=== PATIENT | female | born 1945 | race Caucasian/White ===

== ENCOUNTER → 2016-11-18 | Outpatient (CLI) | payer MEDICARE ==
[2016-11-18 13:56] LABS: ANION GAP 9 MEQ/L (8-16); BLOOD UREA NITROGEN 16 MG/DL (7-18); CALCIUM LEVEL 8.7 MG/DL (8.8-10.2); CARBON DIOXIDE LEVEL 27 MEQ/L (21-32); CHLORIDE LEVEL 103 MEQ/L (98-107); CREATININE FOR GFR 0.81 MG/DL (0.55-1.02); GLOMERULAR FILTRATION RATE > 60.0 (>39); GLUCOSE, FASTING 110 MG/DL (83-110); POTASSIUM SERUM 3.7 MEQ/L (3.5-5.1); SODIUM LEVEL 139 MEQ/L (136-145)
--- NOTE | 2016-11-19 07:39 | CR ---
DATE OF CONSULTATION: 11/18/2016 REFERRING PHYSICIAN: Dr. Swain. Dear Dr. Swain: Thank you for asking me to see Ms. Sheila Osman in consultation prior to her bilateral eye surgery 12/04/2016. Ms. Osman is, as you know, a 71-year-old female with past medical history is osteoarthritis (OA), degenerative joint disease (DJD), hypertension, hyperlipidemia who presents for preoperative optimization. The patient reports onset of upper respiratory infection (URI) symptoms the last 4-5 days after returning from a long flight from [place]. Her has been ill as well. She has been sleeping the last 2-3 days from exhaustion from the long flights, time change, and her URI symptoms. She complains of congestion, ear crackling, but has had no significant fevers. She is using NyQuil, resting and hydrating. She denies any chest pain, palpitations, syncope or presyncope. She does wear bilevel positive airway pressure (BiPAP) and is compliant with this, though difficult with her congestion. Patient has advanced OA, DJD. She has had surgery on the left knee but is still limited. Her right knee has been improved and she is holding off on further intervention. The patient has rheumatoid arthritis. She is on the sulfasalazine. She follows with rheumatology every four months. She strongly feels she needs to medication right up until surgery. The patient has seasonal allergies. She has been off immunotherapy. Symptoms have been good. The patient has hiatal hernia, gastroesophageal reflux disease (GERD). She has been controlled off omeprazole. Patient is menopausal. She is on the Vivelle and feels that she needs it. The patient has insomnia particularly after she has traveled to [place]. She does use Ambien sparingly, but with being ill, she is exhausted and sleeping well. Patient concerned about recurrent cold sores including one on her left lower lip. PAST MEDICAL HISTORY: 1. Hypothyroid. 2. Thyroid adenoma. 3. Fibrocystic breast disease. 4. 2, para 2/ section. 5. Depression. 6. Panic attacks. 7. Basal cell carcinoma on her face times three. 8. Uterine fibroids, status post total abdominal hysterectomy/bilateral salpingo-oophorectomy (TASNEEM-BSO). 9. Palpitations, negative workup. 10. Hyperglycemia. 11. Hyperlipidemia. 12. Hypertension. 14. Rheumatoid arthritis/ 15. OA DJD status post multiple knee surgeries and including left total knee arthroplasty (TKA) 05/28/2013. 16. Allergic rhinitis, status post immunotherapy. 17. Hematuria, negative evaluation 2010. PATIENT'S MEDICATIONS: She is not taking the majority of her supplements at this time. She does have Ambien and uses this sparingly for sleep. She is taking krill oil and flaxseed, as well as reduloxin, a celery supplement for inflammation. She takes her Vivelle regularly. She is on sulfasalazine 500 mg twice a day, and her vitamin D3 2000 international units daily. DRUG ALLERGIES: REGLAN which causes agitation. FAMILY HISTORY: Father had rheumatoid arthritis, lupus. Mom had hypertension, arthritis, polyps. She at 58 of pneumonia. A brother has osteoarthritis, reflux. Grandparents had cardiac disease, thyroid disease. The patient is not smoking, alcohol 3-4 glasses a week. PHYSICAL EXAMINATION: She is an overweight female in no acute distress. VITAL SIGNS: Weight 186 with a body mass index (BMI) of 35.4, Oxygen saturation is 93%, blood pressure 148/86, recheck 134/84, heart rate is 81, temperature is 98.4. HEENT: Head is normocephalic. Neck is supple. Pupils equal, reactive to light. External ocular movements are intact. Conjunctivae are not injected. Sclerae anicteric. Vision is grossly normal. Ears: Tympanic membranes slightly dull with a scant amount of cerumen. Tongue is midline. Posterior pharynx without inflammation. Left lower lip, the patient has small ulcer, most likely a cold sore. NECK: Supple. No thyromegaly, jugular venous distention (JVD) or carotid bruits. RESPIRATORY: Clear to auscultation, resonant to percussion. BREASTS: Exam deferred. CARDIOVASCULAR: Regular rate and rhythm. No murmur, click, rub, gallop. ABDOMEN: Soft, nontender. Normoactive bowel sounds. EXTREMITIES: No cyanosis, clubbing or edema. Left knee well-healed scar. She does have some arthritic changes of her fingers. NEUROLOGIC: Alert and oriented. Cranial nerves II-XII are intact. LABORATORY DATA From 11/18/2016: Normal hemoglobin, normal platelet function. Med profile: The calcium is 8.7, otherwise essentially normal. EKG today shows normal sinus rhythm rate of 81, axis of 18 degrees, normal DC, QRS, QTC interval. Incomplete right bundle branch block, nonspecific ST-T wave changes, unchanged from previous EKG. IMPRESSION: Ms. Sheila Osman is a 71-year-old female with multiple diet-controlled cardiovascular risk factors including hypertension, hyperglycemia, hyperlipidemia, who also has rheumatoid arthritis, has no signs or symptoms indicative of cardiovascular ischemia and is felt to be at low risk for cardiovascular complications from the proposed surgical intervention which can be further minimized by the followin. Hypertension, diet-controlled, adequate control on recheck. 2. Hyperglycemia, dietary advice given. 3. Rheumatoid arthritis resistant to holding her sulfasalazine. I have approved her taking this up until surgery. 4. Hyperlipidemia. I have asked her to hold her fish oil, flaxseed, red yeast rice until after surgery. 5. Menopausal. She will continue her Vivelle perioperatively. 6. Upper respiratory infection (URI) conservative advice including to push fluids, use saline rinses, plenty of rest. Call if not improving. 7. Obstructive sleep apnea (KEVON). I have encouraged compliance and to bring her BiPAP with her to surgery. 8. Gastroesophageal reflux disease (GERD) controlled without intervention. 9. Insomnia, continues sparing use of Ambien. 10. Recurrent cold sores. Expect present is related to her URI and recent trip back from [place]. I have approved the topical use of acyclovir and this is prescribed. Thank you very much for this consultation. Please call with questions or concerns.
== END ==
LOC: M LAB 13:04
PROVIDERS: ATTEND Ophthalmology
DX: H02.423 Myogenic ptosis of bilateral eyelids (principal); G47.30 Sleep apnea, unspecified

== ENCOUNTER → 2017-08-19 | Outpatient (REF) | payer MEDICARE ==
[2017-08-20 11:15] LABS: HEPATITIS C VIRUS ABY INDEX < 0.0 INDEX (<0.8)
== END ==
LOC: M LAB REF 14:00
DX: Z01.89 Encounter for other specified special examinations (principal)
CPT/HCPCS: 86803

== ENCOUNTER → 2017-11-20 | Outpatient (REF) | payer MEDICARE ==
[2017-11-20 12:41] LABS: C REACTIVE PROTEIN QUANTITATIV < 0.30 MG/DL (0.00-0.30)
[2017-11-22 00:07] LABS: CYCLIC CITRULLINATED PEPTIDE < 1 units (0-19)
== END ==
LOC: M LAB REF 11:49
DX: M06.9 Rheumatoid arthritis, unspecified (principal)
CPT/HCPCS: 86140

== ENCOUNTER 2018-07-24 09:35 | Emergency (ER) | payer MEDICARE ==
[~2018-07-24] VITALS: Ht 162.6 cm; Wt 84.1 kg
[2018-07-24 09:36] VITALS: BP 142/78
[2018-07-24] MEDS ORDERED: HYDR-3713 (09:41)
[2018-07-24] MEDS ORDERED: ESTR1DIS3 (09:41)
[2018-07-24] MEDS ORDERED: SULF50TA (09:41)
[2018-07-24] MEDS ORDERED: ZOLP5TAB (09:41)
--- NOTE | 2018-07-24 10:41 | REP ---
RIGHT HUMERUS, TWO VIEWS: HISTORY: Injury. There is no acute fracture or dislocation. There is mild narrowing of the should joint spaces. IMPRESSION: There is no acute fracture or dislocation. Electronically Signed by Miko Cristobal MD 07/24/2018 10:47 A
--- NOTE | 2018-07-24 10:46 | REP ---
Right forearm: Two views. History: Right arm injury. Findings: AP and lateral views of the right forearm demonstrate lateral epicondylar spurring. No fracture or subluxation is seen. There is some osteoarthritis at the wrist. Impression: Degenerative changes. No traumatic abnormality noted. Electronically Signed by Dharmesh Vuong MD 07/24/2018 10:36 A
[2018-07-24] MEDS ORDERED: NORC1TAB4 PO (11:03)
[2018-07-24] MEDS ORDERED: NORCOTAB PO (11:05)
== END 2018-07-24 11:11 | disposition home or self-care (01) ==
LOC: M ED 09:35
DX: S46.911A Strain of unspecified muscle, fascia and tendon at shoulder and upper arm level, right arm, initial encounter (principal); S60.211A Contusion of right wrist, initial encounter; W00.0XXA Fall on same level due to ice and snow, initial encounter; Y92.018 Other place in single-family (private) house as the place of occurrence of the external cause; Z88.8 Allergy status to other drugs, medicaments and biological substances

== ENCOUNTER 2019-07-12 06:37 | Day surgery (SDC) | payer MEDICARE ==
[~2019-07-12] VITALS: Ht 162.6 cm; Wt 85.3 kg
[~2019-07-12 06:37] MED LIST: ESTR1DIS3; HYDR-3713; HYDR-3715 PO; NORC1TAB7 PO; NS 1,000 ML IV ONE; SULF50TA PO; ZOLP5TAB
[2019-07-12] MEDS ORDERED: LIDOCAINE 2% INJ 100 MG/5 ML SDV (FOR ANES.) As Ordered ONE (07:45)
[2019-07-12] MEDS ORDERED: PROPOFOL 200 MG/20 ML VIAL As Ordered ONE (07:46)
--- NOTE | 2019-07-12 07:57 | ROOR ---
Patient Name: Sheila Osman Procedure Date: 07/12/2019 7:36 AM Date of : 1945 Age: 73 Room: [facility] Gender: Female Note Status: Finalized Procedure: Total Colonoscopy to Cecum + Bx. To r/o Microscopic Colitis Indications: Change in bowel habits Providers: Roger Tyson MD Referring MD: Micaela ZAPATA MD Requesting Provider: Medicines: Monitored Anesthesia Care Complications: No immediate complications. Procedure: Pre-Anesthesia Assessment: - The heart rate, respiratory rate, oxygen saturations, blood pressure, adequacy of pulmonary ventilation, and response to care were monitored throughout the procedure. The Colonoscope was introduced through the anus and advanced to the cecum, identified by appendiceal orifice and ileocecal valve. The colonoscopy was performed without difficulty. The patient tolerated the procedure well. The quality of the bowel preparation was excellent. Findings: The perianal and digital rectal examinations were normal. Non-bleeding internal hemorrhoids were found during retroflexion. The hemorrhoids were small and Grade I (internal hemorrhoids that do not prolapse). No other significant abnormalities were identified in a careful examination of the remainder of the colon. The exam was otherwise without abnormality on direct and retroflexion views. Biopsies for histology were taken with a cold forceps from the ascending colon, transverse colon, descending colon and rectosigmoid colon for evaluation of microscopic colitis. The exam was otherwise without abnormality. Impression: - Non-bleeding internal hemorrhoids. - The examination was otherwise normal on direct and retroflexion views. - The examination was otherwise normal. - Biopsies were taken with a cold forceps from the ascending colon, transverse colon, descending colon and rectosigmoid colon for evaluation of microscopic colitis. - The exam was otherwise normal to the cecum. Recommendation: - Patient has a contact number available for emergencies. The signs and symptoms of potential delayed complications were discussed with the patient. Return to normal activities tomorrow. Written discharge instructions were provided to the patient. - High fiber diet. - Discharge patient to home. - Continue present medications. - Await pathology results. - Telephone GI clinic for pathology results in 1 week. - Repeat colonoscopy for symptoms only. - Return to referring physician. - The findings and recommendations were discussed with the patient's family. Roger Tyson MD Roger Tyson MD 07/12/2019 7:57:16 AM Electronically signed by Roger Tyson MD Number of Addenda: 0 Note Initiated On: 07/12/2019 7:36 AM Estimated Blood Loss: Estimated blood loss: none.
[2019-07-12 08:10] VITALS: BP 174/75
== END 2019-07-12 08:40 | disposition home or self-care (01) ==
LOC: M OPP 06:37
PROVIDERS: ATTEND Internal Medicine Gastroenterology
DX: K64.0 First degree hemorrhoids (principal); R19.4 Change in bowel habit; Z79.899 Other long term (current) drug therapy; Z88.8 Allergy status to other drugs, medicaments and biological substances

== ENCOUNTER → 2021-06-08 | Outpatient (REF) | payer MEDICARE ==
[~2021-06-08] MED LIST changes: -NS 1,000 ML IV ONE; +SULF500T41 PO; -SULF50TA PO
[2021-06-08 14:12] LABS: BACTERIA, URINE AUTO NEGATIVE (NEGATIVE); MUCUS, URINE SMALL (NEGATIVE); RBC, URINE AUTO 0 /HPF (0-3); SQUAMOUS EPITHELIAL CELL UR AU 1 /HPF (0-6); WBC, URINE AUTO 0 /HPF (0-3)
== END ==
LOC: M LAB REF 13:39
PROVIDERS: ATTEND Internal Medicine
DX: R31.9 Hematuria, unspecified (principal)

== ENCOUNTER → 2022-09-16 | Outpatient (CLI) | payer MEDICARE | LOC: M SOG 07:52 | PROVIDERS: ATTEND Orthopaedic Surgery | DX: M54.50 Low back pain, unspecified (principal); M25.561 Pain in right knee; Z96.651 Presence of right artificial knee joint; M47.816 Spondylosis without myelopathy or radiculopathy, lumbar region; M47.817 Spondylosis without myelopathy or radiculopathy, lumbosacral region ==

== ENCOUNTER 2022-10-17 12:26 | Emergency (ER) | payer MEDICARE ==
[~2022-10-17] VITALS: Ht 162.6 cm; Wt 85.9 kg
[2022-10-17] MEDS ORDERED: ACETAMINOPHEN 500 MG TAB PO ONE (14:40)
[2022-10-17 16:16] VITALS: BP 184/92
[2022-10-17] MEDS ORDERED: ACETAMINOPH W/CODEINE #3 TAB UD PO ONE (16:30)
[2022-10-17] MEDS ORDERED: ACET-716 PO (16:37)
== END 2022-10-17 16:48 | disposition home or self-care (01) ==
LOC: M ED 12:26
DX: S70.01XA Contusion of right hip, initial encounter (principal); S52.501A Unspecified fracture of the lower end of right radius, initial encounter for closed fracture; S62.001A Unspecified fracture of navicular [scaphoid] bone of right wrist, initial encounter for closed fracture; W19.XXXA Unspecified fall, initial encounter; Y92.89 Other specified places as the place of occurrence of the external cause; Y93.89 Activity, other specified; E78.5 Hyperlipidemia, unspecified; Z79.899 Other long term (current) drug therapy; Z88.8 Allergy status to other drugs, medicaments and biological substances

== ENCOUNTER → 2022-10-21 | Outpatient (CLI) | payer MEDICARE ==
[~2022-10-21] MED LIST changes: +ACET-716 PO
== END ==
LOC: M SOG 11:35
PROVIDERS: ATTEND Physician Assistant
DX: M25.531 Pain in right wrist (principal); Z53.9 Procedure and treatment not carried out, unspecified reason

== ENCOUNTER → 2022-10-29 | Outpatient (CLI) | payer MEDICARE | LOC: M RAD 09:17 | PROVIDERS: ATTEND Orthopaedic Surgery Hand Surgery | DX: S52.531A Colles' fracture of right radius, initial encounter for closed fracture (principal) ==

== ENCOUNTER → 2022-12-19 | Outpatient (CLI) | payer MEDICARE | LOC: M SOG 14:01 | PROVIDERS: ATTEND Orthopaedic Surgery Hand Surgery | DX: S52.531D Colles' fracture of right radius, subsequent encounter for closed fracture with routine healing (principal); S62.001D Unspecified fracture of navicular [scaphoid] bone of right wrist, subsequent encounter for fracture with routine healing ==

== ENCOUNTER → 2023-01-30 | Outpatient (CLI) | payer MEDICARE | LOC: M SOG 13:05 | PROVIDERS: ATTEND Physician Assistant | DX: S52.531D Colles' fracture of right radius, subsequent encounter for closed fracture with routine healing (principal) ==

== ENCOUNTER → 2023-02-18 | Outpatient (CLI) | payer MEDICARE | LOC: M SOG 09:52 | PROVIDERS: ATTEND Physician Assistant | DX: S52.531D Colles' fracture of right radius, subsequent encounter for closed fracture with routine healing (principal); M19.031 Primary osteoarthritis, right wrist ==

== ENCOUNTER 2023-03-17 06:14 | Day surgery (SDC) | payer MEDICARE ==
[~2023-03-17] VITALS: Ht 162.6 cm; Wt 85.3 kg
[~2023-03-17 06:14] MED LIST changes: +EQL1CAP9 PO; +GABA-282 PO; +KP F1200 PO; +MELO7.5T35 PO; +RA T500C2 PO; +ZOLP5TAB PO
[2023-03-17] MEDS ORDERED: fentaNYL 100 MCG/2 ML INJECTION As Ordered ONE (07:14)
[2023-03-17] MEDS ORDERED: LIDOCAINE 2% 100MG/5ML SDV (FOR ANES.) As Ordered ONE (07:14)
[2023-03-17] MEDS ORDERED: propofoL 200 MG/20 ML VIAL As Ordered ONE ×2 (07:14→07:51)
[2023-03-17] MEDS ORDERED: MIDAZOLAM INJ 2MG/2ML VIAL As Ordered ONE (07:14)
[2023-03-17] MEDS ORDERED: ONDANSETRON 4MG 2ML VIAL As Ordered ONE (07:37)
[2023-03-17 09:01] VITALS: BP 163/70; TEMP 97.2; O2SAT 94
== END 2023-03-17 09:01 | disposition home or self-care (01) ==
LOC: M SDC 06:14
PROVIDERS: ATTEND Orthopaedic Surgery Hand Surgery
DX: G56.01 Carpal tunnel syndrome, right upper limb (principal); I10 Essential (primary) hypertension; R73.03 Prediabetes; E04.1 Nontoxic single thyroid nodule; K21.9 Gastro-esophageal reflux disease without esophagitis; G47.33 Obstructive sleep apnea (adult) (pediatric); Z88.8 Allergy status to other drugs, medicaments and biological substances; Z79.899 Other long term (current) drug therapy
CPT/HCPCS: 29848; J0665; J2250; J2405; J3010

== ENCOUNTER → 2023-05-21 | Outpatient (CLI) | payer MEDICARE | LOC: M RAD 10:13 | PROVIDERS: ATTEND Internal Medicine | DX: Z09 Encounter for follow-up examination after completed treatment for conditions other than malignant neoplasm (principal); Z86.16 Personal history of COVID-19 ==

== ENCOUNTER → 2023-06-02 | Outpatient (REF) | payer MEDICARE ==
[2023-06-02 18:58] LABS: URIC ACID 4.4 MG/DL (3.1-7.8)
[2023-06-02 18:59] LABS: C REACTIVE PROTEIN QUANTITATIV < 0.40 MG/DL (<1.0)
[2023-06-02 19:14] LABS: RHEUMATOID FACTOR QUANT 193.4 IU/ML (<14)
[2023-06-04 23:07] LABS: ANA (HEP2) Positive (.); CYCLIC CITRULLINATED PEPTIDE 7 units (0-19)
== END ==
LOC: M LAB REF 16:17
PROVIDERS: ATTEND Internal Medicine
DX: M06.9 Rheumatoid arthritis, unspecified (principal); M19.90 Unspecified osteoarthritis, unspecified site

== ENCOUNTER → 2023-07-10 | Outpatient (CLI) | payer MEDICARE | LOC: M PAIN 13:00 | PROVIDERS: ATTEND Nurse Practitioner Family | DX: M54.16 Radiculopathy, lumbar region (principal); G89.29 Other chronic pain; K21.9 Gastro-esophageal reflux disease without esophagitis; J45.909 Unspecified asthma, uncomplicated; Z79.899 Other long term (current) drug therapy ==

== ENCOUNTER → 2023-08-22 | Outpatient (CLI) | payer MEDICARE | LOC: M PLAIMG 11:16 | PROVIDERS: ATTEND Nurse Practitioner Family | DX: M54.16 Radiculopathy, lumbar region (principal); M47.816 Spondylosis without myelopathy or radiculopathy, lumbar region; M47.817 Spondylosis without myelopathy or radiculopathy, lumbosacral region; M48.07 Spinal stenosis, lumbosacral region ==

== ENCOUNTER → 2023-09-16 | Outpatient (CLI) | payer MEDICARE | LOC: M PLAIMG 09-04 16:01 | PROVIDERS: ATTEND Internal Medicine | DX: M25.561 Pain in right knee (principal); Z96.651 Presence of right artificial knee joint ==

== ENCOUNTER → 2023-09-23 | Outpatient (CLI) | payer MEDICARE | LOC: M PAIN 15:30 | PROVIDERS: ATTEND Nurse Practitioner Family | DX: M51.16 Intervertebral disc disorders with radiculopathy, lumbar region (principal); G47.33 Obstructive sleep apnea (adult) (pediatric); Z99.89 Dependence on other enabling machines and devices; Z79.890 Hormone replacement therapy; Z79.899 Other long term (current) drug therapy ==

== ENCOUNTER → 2023-10-07 | Outpatient (REF) | payer MEDICARE ==
[2023-10-07 13:24] LABS: AMORPHOUS SEDIMENT SMALL (NEGATIVE); APPEARANCE, URINE TURBID (CLEAR); BACTERIA, URINE AUTO NEGATIVE (NEGATIVE); BILIRUBIN, URINE AUTO NEGATIVE (NEGATIVE); BLOOD, URINE BLOOD NEGATIVE (NEGATIVE); C REACTIVE PROTEIN QUANTITATIV < 0.40 MG/DL (<1.0); COLOR, URINE YELLOW (YELLOW); GLUCOSE, URINE (UA) AUTO NEGATIVE (NEGATIVE); KETONE, URINE AUTO NEGATIVE (NEGATIVE); LEUKOCYTE ESTERASE, URINE AUTO NEGATIVE (NEGATIVE); MUCUS, URINE MODERATE (NEGATIVE); NITRITE, URINE AUTO NEGATIVE (NEGATIVE); PROTEIN, URINE AUTO NEGATIVE (NEGATIVE); RBC, URINE AUTO 0 /HPF (0-3); SPECIFIC GRAVITY URINE AUTO 1.025 (1.002-1.035); SQUAMOUS EPITHELIAL CELL UR AU 2 /HPF (0-6); UROBILINOGEN, URINE AUTO 0.2 mg/dL (0.0-2.0); WBC, URINE AUTO 0 /HPF (0-3)
[2023-10-07 13:25] LABS: IMMUNOGLOBULIN A 143.4 MG/DL (40-350); IMMUNOGLOBULIN G 1202 MG/DL (650-1600)
[2023-10-07 13:26] LABS: ALBUMIN 3.7 G/DL (3.2-5.2); ALKALINE PHOSPHATASE 79 U/L (46-116); ALT/SGPT 21 U/L (7.0-40); AST/SGOT 19 U/L (<34); BILIRUBIN,TOTAL 0.6 MG/DL (0.3-1.2); BLOOD UREA NITROGEN 19 MG/DL (9-23); CALCIUM LEVEL 9.5 MG/DL (8.3-10.6); CARBON DIOXIDE LEVEL 27 MMOL/L (20-31); CHLORIDE LEVEL 107 MMOL/L (98-107); COMPLEMENT C3 132.4 MG/DL (90.0-170.0); COMPLEMENT C4 25.8 MG/DL (12-36); CREATININE FOR GFR 0.59 MG/DL (0.55-1.30); GLOMERULAR FILTRATION RATE > 60.0 (>39); GLUCOSE, FASTING 100 MG/DL (74-106); POTASSIUM SERUM 4.1 MMOL/L (3.5-5.1); SODIUM LEVEL 138 MMOL/L (136-145); TOTAL PROTEIN 6.9 G/DL (5.7-8.2)
[2023-10-07 13:30] LABS: BASO % 0.8 % (0.0-1.0); EOS % 0.8 % (0.0-3.0); HEMATOCRIT 39.2 % (36.0-47.0); HEMOGLOBIN 12.4 g/dl (12.0-15.5); LYMPH # 1.2 10^3/uL (1.5-5.0); LYMPH % 23.7 % (24.0-44.0); MEAN CORPUSCULAR HEMOGLOBIN 30.4 pg (27.0-33.0); MEAN CORPUSCULAR HGB CONC 31.6 g/dl (32.0-36.5); MEAN CORPUSCULAR VOLUME 96.1 fl (80.0-96.0); MONO # 0.5 10^3/uL (0.0-0.8); MONO % 8.7 % (2.0-8.0); NEUTROPHILS # 3.4 10^3/uL (1.5-8.5); NEUTROPHILS % 65.6 % (36.0-66.0); PLATELET COUNT, AUTOMATED 209 10^3/uL (150-450); RED BLOOD COUNT 4.08 10^6/uL (4.00-5.40); WHITE BLOOD COUNT 5.2 10^3/uL (4.0-10.0)
[2023-10-07 13:45] LABS: TOTAL PROTEIN,RANDOM URINE 18.4 MG/DL (0.0-14.0)
[2023-10-07 13:51] LABS: CREATININE,RANDOM URINE 134.2 MG/DL
[2023-10-07 13:55] LABS: ERYTHROCYTE SEDIMENTATION RATE 35 mm/hr (0-30)
[2023-10-07 14:07] LABS: HEPATITIS B CORE ANTIBODY IGM NEGATIVE (NEGATIVE); HEPATITIS C VIRUS ABY INDEX < 0.02 INDEX (<0.8)
[2023-10-08 14:08] LABS: COMPLEMENT TOTAL (CH50) 59 U/mL (>41)
== END ==
LOC: M SFHCRHEU 08:53
PROVIDERS: ATTEND Internal Medicine Rheumatology
DX: M05.79 Rheumatoid arthritis with rheumatoid factor of multiple sites without organ or systems involvement (principal); Z79.60 Long term (current) use of unspecified immunomodulators and immunosuppressants; R68.2 Dry mouth, unspecified; Z01.89 Encounter for other specified special examinations; Z87.59 Personal history of other complications of pregnancy, childbirth and the puerperium; Z82.61 Family history of arthritis; Z82.69 Family history of other diseases of the musculoskeletal system and connective tissue; Z84.89 Family history of other specified conditions; R29.6 Repeated falls; Z85.828 Personal history of other malignant neoplasm of skin; Z88.8 Allergy status to other drugs, medicaments and biological substances; Z90.710 Acquired absence of both cervix and uterus; Z96.653 Presence of artificial knee joint, bilateral

== ENCOUNTER → 2023-10-07 | Outpatient (CLI) | payer MEDICARE | LOC: M RAD 11:02 | PROVIDERS: ATTEND Internal Medicine Rheumatology | DX: M19.041 Primary osteoarthritis, right hand (principal); M19.042 Primary osteoarthritis, left hand; M05.79 Rheumatoid arthritis with rheumatoid factor of multiple sites without organ or systems involvement; R68.2 Dry mouth, unspecified; Z79.60 Long term (current) use of unspecified immunomodulators and immunosuppressants ==

== ENCOUNTER → 2023-10-29 | Outpatient (CLI) | payer MEDICARE | LOC: M PAIN 11:45 | PROVIDERS: ATTEND Anesthesiology | DX: M25.561 Pain in right knee (principal); M51.16 Intervertebral disc disorders with radiculopathy, lumbar region; K21.9 Gastro-esophageal reflux disease without esophagitis; J45.909 Unspecified asthma, uncomplicated; Z85.828 Personal history of other malignant neoplasm of skin; Z79.1 Long term (current) use of non-steroidal anti-inflammatories (NSAID); Z79.899 Other long term (current) drug therapy; Z88.8 Allergy status to other drugs, medicaments and biological substances ==

== ENCOUNTER → 2024-01-05 | Outpatient (CLI) | payer MEDICARE ==
[~2024-01-05] MED LIST changes: +MELO7.5T35
== END ==
LOC: M SOG 08:21
PROVIDERS: ATTEND Physician Assistant
DX: M79.645 Pain in left finger(s) (principal)

== ENCOUNTER → 2024-01-28 | Outpatient (CLI) | payer MEDICARE ==
[2024-01-28 16:14] LABS: BASO % 0.7 % (0.0-1.0); EOS % 0.7 % (0.0-3.0); HEMATOCRIT 39.1 % (36.0-47.0); HEMOGLOBIN 12.3 g/dl (12.0-15.5); LYMPH % 33.8 % (24.0-44.0); MEAN CORPUSCULAR HEMOGLOBIN 29.5 pg (27.0-33.0); MEAN CORPUSCULAR HGB CONC 31.5 g/dl (32.0-36.5); MEAN CORPUSCULAR VOLUME 93.8 fl (80.0-96.0); MONO # 0.6 10^3/uL (0.0-0.8); MONO % 9.5 % (2.0-8.0); NEUTROPHILS # 3.2 10^3/uL (1.5-8.5); NEUTROPHILS % 55.1 % (36.0-66.0); PLATELET COUNT, AUTOMATED 223 10^3/uL (150-450); RED BLOOD COUNT 4.17 10^6/uL (4.00-5.40); WHITE BLOOD COUNT 5.8 10^3/uL (4.0-10.0)
[2024-01-28 16:26] LABS: ERYTHROCYTE SEDIMENTATION RATE 26 mm/hr (0-30)
[2024-01-28 16:34] LABS: C REACTIVE PROTEIN QUANTITATIV < 0.40 MG/DL (<1.0)
[2024-01-28 16:36] LABS: ALBUMIN 3.7 G/DL (3.2-5.2); ALKALINE PHOSPHATASE 101 U/L (46-116); ALT/SGPT 13 U/L (7.0-40); AST/SGOT 8 U/L (<34); BILIRUBIN,TOTAL 0.4 MG/DL (0.3-1.2); BLOOD UREA NITROGEN 28 MG/DL (9-23); CALCIUM LEVEL 9.7 MG/DL (8.3-10.6); CARBON DIOXIDE LEVEL 27 MMOL/L (20-31); CHLORIDE LEVEL 109 MMOL/L (98-107); CREATININE FOR GFR 0.69 MG/DL (0.55-1.30); GLOMERULAR FILTRATION RATE > 60.0 (>39); GLUCOSE, FASTING 98 MG/DL (74-106); POTASSIUM SERUM 4.6 MMOL/L (3.5-5.1); SODIUM LEVEL 141 MMOL/L (136-145); TOTAL PROTEIN 6.9 G/DL (5.7-8.2)
== END ==
LOC: M LAB 15:53
PROVIDERS: ATTEND Internal Medicine Rheumatology
DX: M05.79 Rheumatoid arthritis with rheumatoid factor of multiple sites without organ or systems involvement (principal); Z79.60 Long term (current) use of unspecified immunomodulators and immunosuppressants; R68.2 Dry mouth, unspecified

== ENCOUNTER → 2024-02-27 | Outpatient (REF) | payer MEDICARE | LOC: M SFHCRHEU 08:22 | PROVIDERS: ATTEND Internal Medicine Rheumatology | DX: M05.79 Rheumatoid arthritis with rheumatoid factor of multiple sites without organ or systems involvement (principal); Z53.9 Procedure and treatment not carried out, unspecified reason ==

== ENCOUNTER → 2024-07-19 | Outpatient (CLI) | payer MEDICARE ==
[~2024-07-19] MED LIST changes: +GABA-1172 PO; -GABA-282 PO
[2024-07-19 12:16] LABS: BASO % 0.5 % (0.0-1.0); EOS % 0.6 % (0.0-3.0); HEMATOCRIT 38.2 % (36.0-47.0); HEMOGLOBIN 12.3 g/dl (12.0-15.5); LYMPH # 1.3 10^3/uL (1.5-5.0); LYMPH % 21.3 % (24.0-44.0); MEAN CORPUSCULAR HEMOGLOBIN 29.7 pg (27.0-33.0); MEAN CORPUSCULAR HGB CONC 32.2 g/dl (32.0-36.5); MEAN CORPUSCULAR VOLUME 92.3 fl (80.0-96.0); MONO # 0.4 10^3/uL (0.0-0.8); MONO % 6.9 % (2.0-8.0); NEUTROPHILS # 4.4 10^3/uL (1.5-8.5); NEUTROPHILS % 70.5 % (36.0-66.0); PLATELET COUNT, AUTOMATED 241 10^3/uL (150-450); RED BLOOD COUNT 4.14 10^6/uL (4.00-5.40); WHITE BLOOD COUNT 6.2 10^3/uL (4.0-10.0)
[2024-07-19 12:21] LABS: C REACTIVE PROTEIN QUANTITATIV < 0.50 MG/DL (<1.0)
[2024-07-19 12:22] LABS: ALBUMIN 3.6 G/DL (3.2-5.2); ALKALINE PHOSPHATASE 97 U/L (35-104); ALT/SGPT 18 U/L (7.0-40); AST/SGOT 12 U/L (<34); BILIRUBIN,TOTAL 0.6 MG/DL (0.3-1.2); BLOOD UREA NITROGEN 19 MG/DL (9-23); CALCIUM LEVEL 9.5 MG/DL (8.3-10.6); CARBON DIOXIDE LEVEL 25 MMOL/L (20-31); CHLORIDE LEVEL 107 MMOL/L (98-107); CREATININE FOR GFR 0.68 MG/DL (0.55-1.30); GLOMERULAR FILTRATION RATE > 60.0 (>39); GLUCOSE, FASTING 106 MG/DL (74-106); POTASSIUM SERUM 4.2 MMOL/L (3.5-5.1); SODIUM LEVEL 139 MMOL/L (136-145); TOTAL PROTEIN 7.3 G/DL (5.7-8.2)
[2024-07-19 12:30] LABS: ERYTHROCYTE SEDIMENTATION RATE 22 mm/hr (0-30)
== END ==
LOC: M LAB 10:51
PROVIDERS: ATTEND Internal Medicine Rheumatology
DX: M05.79 Rheumatoid arthritis with rheumatoid factor of multiple sites without organ or systems involvement (principal)

== ENCOUNTER → 2024-09-10 | Outpatient (CLI) | payer MEDICARE ==
[2024-09-10 15:39] LABS: BASO % 0.7 % (0.0-1.0); EOS % 0.5 % (0.0-3.0); HEMATOCRIT 42.8 % (36.0-47.0); HEMOGLOBIN 13.9 g/dl (12.0-15.5); LYMPH # 1.7 10^3/uL (1.5-5.0); LYMPH % 30.7 % (24.0-44.0); MEAN CORPUSCULAR HEMOGLOBIN 30.4 pg (27.0-33.0); MEAN CORPUSCULAR HGB CONC 32.5 g/dl (32.0-36.5); MEAN CORPUSCULAR VOLUME 93.7 fl (80.0-96.0); MONO # 0.5 10^3/uL (0.0-0.8); MONO % 8.9 % (2.0-8.0); NEUTROPHILS # 3.3 10^3/uL (1.5-8.5); PLATELET COUNT, AUTOMATED 262 10^3/uL (150-450); RED BLOOD COUNT 4.57 10^6/uL (4.00-5.40); WHITE BLOOD COUNT 5.5 10^3/uL (4.0-10.0)
[2024-09-10 15:48] LABS: ERYTHROCYTE SEDIMENTATION RATE 22 mm/hr (0-30)
[2024-09-10 15:54] LABS: C REACTIVE PROTEIN QUANTITATIV < 0.50 MG/DL (<1.0)
[2024-09-10 15:57] LABS: ALKALINE PHOSPHATASE 80 U/L (35-104); ALT/SGPT 17 U/L (7.0-40); AST/SGOT 12 U/L (<34); BILIRUBIN,TOTAL 0.6 MG/DL (0.3-1.2); BLOOD UREA NITROGEN 19 MG/DL (9-23); CALCIUM LEVEL 9.9 MG/DL (8.3-10.6); CARBON DIOXIDE LEVEL 26 MMOL/L (20-31); CHLORIDE LEVEL 105 MMOL/L (98-107); CREATININE FOR GFR 0.64 MG/DL (0.55-1.30); GLOMERULAR FILTRATION RATE > 60.0 (>39); GLUCOSE, FASTING 92 MG/DL (74-106); POTASSIUM SERUM 4.4 MMOL/L (3.5-5.1); SODIUM LEVEL 141 MMOL/L (136-145); TOTAL PROTEIN 7.5 G/DL (5.7-8.2)
== END ==
LOC: M LAB 13:54
PROVIDERS: ATTEND Internal Medicine Rheumatology
DX: M05.79 Rheumatoid arthritis with rheumatoid factor of multiple sites without organ or systems involvement (principal)

== ENCOUNTER → 2025-03-09 | Outpatient (CLI) | payer MEDICARE ==
[~2025-03-09] MED LIST changes: -RA T500C2 PO; +TURM500C10 PO
[2025-03-09 11:58] LABS: BASO # 0.0 10^3/uL (0.0-0.2); BASO % 0.7 % (0.0-1.0); EOS # 0.0 10^3/uL (0.0-0.5); EOS % 0.2 % (0.0-3.0); LYMPH # 1.6 10^3/uL (1.5-5.0); LYMPH % 29.6 % (24.0-44.0); MONO # 0.5 10^3/uL (0.0-0.8); MONO % 9.7 % (2.0-8.0); NEUTROPHILS # 3.2 10^3/uL (1.5-8.5); NEUTROPHILS % 59.6 % (36.0-66.0); PLATELET COUNT, AUTOMATED 221 10^3/uL (150-450)
[2025-03-09 12:28] LABS: ALT/SGPT 16 U/L (7.0-40); AST/SGOT 14 U/L (<34); C REACTIVE PROTEIN QUANTITATIV < 0.50 MG/DL (<1.0); CALCIUM LEVEL 9.7 MG/DL (8.3-10.6); CARBON DIOXIDE LEVEL 28 MMOL/L (20-31); CHLORIDE LEVEL 105 MMOL/L (98-107); CREATININE FOR GFR 0.63 MG/DL (0.55-1.30); GLOMERULAR FILTRATION RATE > 90.0 (>39); POTASSIUM SERUM 4.3 MMOL/L (3.5-5.1); SODIUM LEVEL 143 MMOL/L (136-145)
[2025-03-09 13:34] LABS: ERYTHROCYTE SEDIMENTATION RATE 18 mm/hr (0-30)
== END ==
LOC: M LAB 11:12
PROVIDERS: ATTEND Internal Medicine Rheumatology
DX: M05.79 Rheumatoid arthritis with rheumatoid factor of multiple sites without organ or systems involvement (principal)

== ENCOUNTER → 2025-03-18 | Outpatient (REF) | payer MEDICARE ==
[~2025-03-18] MED LIST changes: -ZOLP5TAB; -ZOLP5TAB PO; +ZOLP5TAB9; +ZOLP5TAB9 PO
[2025-03-18 14:31] LABS: IRON (FE) 67.0 UG/DL (50-170); PERCENT SATURATION 26.4 % (13.2-45.0)
== END ==
LOC: M LAB REF 13:49
PROVIDERS: ATTEND Internal Medicine
DX: D50.9 Iron deficiency anemia, unspecified (principal)

== ENCOUNTER → 2025-03-30 | Outpatient (REF) | payer MEDICARE ==
[2025-03-30 19:11] LABS: VITAMIN B12 LEVEL 961.0 PG/ML (211-911)
[2025-04-05 19:02] LABS: LYME TOTAL ANTIBODY CIA <= 0.90 Index (<=0.90)
== END ==
LOC: M LAB REF 17:35
PROVIDERS: ATTEND Internal Medicine
DX: D50.9 Iron deficiency anemia, unspecified (principal); R53.83 Other fatigue; M25.50 Pain in unspecified joint

== ENCOUNTER → 2025-06-16 | Outpatient (CLI) | payer MEDICARE ==
[~2025-06-16] MED LIST changes: +CHOL125C5 PO
[2025-06-16 14:10] LABS: BASO # 0.0 10^3/uL (0.0-0.2); BASO % 0.5 % (0.0-1.0); EOS # 0.0 10^3/uL (0.0-0.5); EOS % 0.3 % (0.0-3.0); LYMPH # 1.8 10^3/uL (1.5-5.0); LYMPH % 29.3 % (24.0-44.0); MONO # 0.5 10^3/uL (0.0-0.8); MONO % 7.6 % (2.0-8.0); NEUTROPHILS # 3.8 10^3/uL (1.5-8.5); NEUTROPHILS % 62.1 % (36.0-66.0); PLATELET COUNT, AUTOMATED 259 10^3/uL (150-450)
[2025-06-16 14:16] LABS: ALT/SGPT 17 U/L (7.0-40); AST/SGOT 16 U/L (<34); C REACTIVE PROTEIN QUANTITATIV < 0.50 MG/DL (<1.0); CALCIUM LEVEL 9.7 MG/DL (8.3-10.6); CARBON DIOXIDE LEVEL 29 MMOL/L (20-31); CHLORIDE LEVEL 103 MMOL/L (98-107); CREATININE FOR GFR 0.63 MG/DL (0.55-1.30); GLOMERULAR FILTRATION RATE > 90.0 (>39); POTASSIUM SERUM 4.3 MMOL/L (3.5-5.1); SODIUM LEVEL 139 MMOL/L (136-145)
== END ==
LOC: M PLALAB 09:46
PROVIDERS: ATTEND Internal Medicine Rheumatology
DX: M05.79 Rheumatoid arthritis with rheumatoid factor of multiple sites without organ or systems involvement (principal); Z79.60 Long term (current) use of unspecified immunomodulators and immunosuppressants; R68.2 Dry mouth, unspecified